=== PATIENT | male | born 1995 | race Caucasian/White ===

== ENCOUNTER 2017-10-12 14:57 | Emergency (ER) | payer OTHER ==
[2017-10-12 15:07] VITALS: BP 144/81
[2017-10-12] MEDS ORDERED: TORADOL IM ONE (17:15)
[2017-10-12] MEDS ORDERED: ULTRAM PO ONE (17:15)
[2017-10-12] MEDS ORDERED: BOOSTRIX IM ONE (17:17)
[2017-10-12] MEDS ORDERED: MOTRIN PO ONE (17:17)
[2017-10-12] MEDS ORDERED: TORADOL ONE (17:18)
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
== END 2017-10-12 19:47 | disposition home or self-care (01) ==
LOC: ED 14:57
DX: S86.912A Strain of unspecified muscle(s) and tendon(s) at lower leg level, left leg, initial encounter (principal); S66.911A Strain of unspecified muscle, fascia and tendon at wrist and hand level, right hand, initial encounter; S39.012A Strain of muscle, fascia and tendon of lower back, initial encounter; V89.2XXA Person injured in unspecified motor-vehicle accident, traffic, initial encounter; Y93.89 Activity, other specified; Y92.89 Other specified places as the place of occurrence of the external cause; Y99.8 Other external cause status
CPT/HCPCS: 72100; 90471; 90715; J1885